=== PATIENT | male | born 1995 | race Caucasian/White ===

== ENCOUNTER 2020-07-10 12:25 | Outpatient (REF) | payer MEDICAID, SELFPAY ==
[2020-07-10 13:12] LABS: COVID-19 Test Negative (Negative)
== END 2020-07-10 12:26 | disposition home or self-care (01) ==
LOC: HO.LAB 12:25
PROVIDERS: Visit Provider Internal Medicine
DX: Z20.822 Contact with and (suspected) exposure to COVID-19 (principal)
CPT/HCPCS: 36415; 87635; C9803

== ENCOUNTER 2020-07-21 16:56 | Emergency (ER) | payer MEDICAID, SELFPAY ==
--- NOTE | 2020-07-21 17:11 | ED.PSYCH ---
HPI - Psych General Chief Complaint: Psychiatric Symptoms Stated Complaint: etoh Time Seen by Provider: 07/21/20 19:22 Source: patient and EMS Mode of arrival: EMS Limitations: altered mental status (Alcohol intoxication) History of Present Illness HPI Narrative: 24-year-old male presents via EMS for acute alcohol intoxication and suicidal ideation with suspected attempt. 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 Patient is belligerent at this time. MD complaint: suicidal ideation, altered mental status (Intoxication) and alcohol abuse Onset (ago): hour(s) (Within the hour of arrival) History of same: Yes Relieving factors: none Exacerbating factors: alcohol Context: recent alcohol abuse Associated psychiatric symptoms: depression and suicidal ideation Treatments prior to arrival: placed on mental health hold If self harm: admits thoughts of self harm Related Data Allergies Allergy/AdvReac Type Severity Reaction Status Date / Time No Known Allergies Allergy Unverified 11/24/19 19:36 [No Known Allergies*] Review of Systems Review of Systems: Constitutional: No Fever, No Chills ENT/Mouth: No sore throat, No Rhinorrhea Eyes: No Eye Pain, No Swelling, No Redness Cardiovascular: No Chest Pain, No SOB Respiratory: No Cough, No Sputum Gastrointestinal: No Nausea, No Vomiting, No Diarrhea, No abdominal Pain Genitourinary: No Dysuria, No Hematuria Musculoskeletal: No joint pain, No Myalgias, No Joint Swelling Skin: No Skin Lesions, No rash Neuro: No Weakness, No Numbness, No Loss of Consciousness, No Dizziness, No Headache Psych: No Anxiety, positive Depression, positive suicidal ideation, positive alcohol intoxication Heme/Lymph: No Bruising, No Bleeding,No Lymphadenopathy Endocrine: No Polyuria, No Polydipsia Yes all other systems are reviewed and are negative [facility] Past Medical History Attestation statement: The following information was validated with the patient. Source: old records reviewed Social History Social History Advance Directives: No Advance Directives Information Provided: No Physical Exam Vital Signs: Vital Signs: Last Vital Signs Temp 98.5 F 07/22/20 00:51 Pulse 102 H 07/22/20 00:51 Resp 17 07/22/20 00:51 BP 125/77 07/22/20 00:51 Pulse Ox 97 07/22/20 00:51 Body Mass Index 32.5 Appearance: Alert. Oriented X3. Acute alcohol intoxication. Eyes: Pupils equal, round and reactive to light. ENT: Pharynx normal. Neck: Normal inspection. Neck supple. CVS: Normal heart rate and rhythm. Pulses normal. Respiratory: No respiratory distress. Breath sounds normal. Abdomen: Soft and nontender. Skin: Skin warm and dry. Normal skin color. Normal skin turgor. Extremities: Moves all extremities spontaneously and against resistance Neuro: No motor deficit. No sensory deficit. Cranial nerves 2-12 intact no focal neural deficits Course Course Course Narrative: 24-year-old male presents via EMS for alcohol intoxication and suicidal ideation. It is reported that patient was found with a noose in his hand, with intent for him to use it. Upon my initial assessment, patient is belligerent, angry, stating that he does not belong here and wants to leave. After several minutes I informed this patient that he would not be leaving. Approximately 20 minutes after my initial assessment attempt, patient is more cooperative. States that he drinks alcohol on a daily basis, usually bourbon and beer. He does report making a suicidal statement however he did not mention that he had made a noose with intent to use it. At this time patient is unsafe to be discharged to home and requires BHN consult. We will monitor closely as he is a daily drinker and has high risk for EtOH withdrawal symptoms. 12:41 a.m. physician observation started. CIWA and BHN consult pending. MDM - Psych Lab Data Result diagrams: 07/21/20 19:38 07/21/20 19:38 Labs: Lab Results 07/21/20 07/21/20 07/21/20 Range/Units 18:23 19:38 19:38 WBC 4.5 L (4.8-10.8) X10*3/uL RBC 4.71 (4.60-5.80) X10*6/uL Hgb 15.3 (14.0-18.0) g/dl Hct 45.1 (42-52) % MCV 95.8 (80-98) fL MCH 32.5 (27.0-33.0) pg MCHC 33.9 (31.0-36.0) g/dl RDW 12.4 (11.0-16.0) % Plt Count 309 (160-400) X10*3/uL MPV 9.3 L (9.4-12.4) fL Immature Gran % (Auto) 0.4 (0.0-0.4) % Neut % (Auto) 57.4 (45-73) % Lymph % (Auto) 33.7 (20-40) % Hutchinson % (Auto) 6.3 (2-11) % Eos % (Auto) 1.1 (0-4) % Baso % (Auto) 1.1 (0-2) % Lymph # (Auto) 1.5 (1.2-4.9) X10*3/uL Hutchinson # (Auto) 0.3 (0.1-1.2) X10*3/uL Eos # (Auto) 0.1 (0.0-0.4) X10*3/uL Baso # (Auto) 0.1 (0.0-0.2) X10*3/uL Abs Immat Gran (auto) 0.02 (0.00-0.03) X10*3/uL Absolute Neuts (auto) 2.6 (2.0-8.3) X10*3/uL Absolute Nucleated RBC 0.000 (0.0-0.012) X10*3/uL Nucleated RBC % (auto) 0.0 (0.0-0.2) /100WBC Sodium 144 (135-145) mmol/L Potassium 4.8 (3.3-5.1) mmol/L Chloride 104 (96-108) mmol/L Carbon Dioxide 30 H (22-29) mmol/L Anion Gap 15 (12-20) BUN 10 (9-16) mg/dL Creatinine 1.08 (0.5-1.4) mg/dL Estim Creat Clear Calc 132.0 Estimated GFR > 60 Random Glucose 104 (60-115) mg/dL Calcium 9.8 (8.4-10.2) mg/dL Total Bilirubin 0.3 (0.0-1.0) mg/dL AST 36 (5-37) U/L ALT 29 (0-40) U/L Alkaline Phosphatase 85 (39-117) U/L Total Protein 7.9 (6.5-8.0) g/dL Albumin 4.8 (3.5-5.0) g/dL Urine Opiates Screen Not Detected (Not Detect) Ur Barbiturates Screen Not Detected (Not Detect) Ur Phencyclidine Scrn Not Detected (Not Detect) Ur Amphetamines Screen Not Detected (Not Detect) U Benzodiazepines Scrn Not Detected (Not Detect) Urine Cocaine Screen Not Detected (Not Detect) U Marijuana (THC) Screen Not Detected (Not Detect) Ethyl Alcohol mg/dL 07/21/20 Range/Units 19:38 WBC (4.8-10.8) X10*3/uL RBC (4.60-5.80) X10*6/uL Hgb (14.0-18.0) g/dl Hct (42-52) % MCV (80-98) fL MCH (27.0-33.0) pg MCHC (31.0-36.0) g/dl RDW (11.0-16.0) % Plt Count (160-400) X10*3/uL MPV (9.4-12.4) fL Immature Gran % (Auto) (0.0-0.4) % Neut % (Auto) (45-73) % Lymph % (Auto) (20-40) % Hutchinson % (Auto) (2-11) % Eos % (Auto) (0-4) % Baso % (Auto) (0-2) % Lymph # (Auto) (1.2-4.9) X10*3/uL Hutchinson # (Auto) (0.1-1.2) X10*3/uL Eos # (Auto) (0.0-0.4) X10*3/uL Baso # (Auto) (0.0-0.2) X10*3/uL Abs Immat Gran (auto) (0.00-0.03) X10*3/uL Absolute Neuts (auto) (2.0-8.3) X10*3/uL Absolute Nucleated RBC (0.0-0.012) X10*3/uL Nucleated RBC % (auto) (0.0-0.2) /100WBC Sodium (135-145) mmol/L Potassium (3.3-5.1) mmol/L Chloride (96-108) mmol/L Carbon Dioxide (22-29) mmol/L Anion Gap (12-20) BUN (9-16) mg/dL Creatinine (0.5-1.4) mg/dL Estim Creat Clear Calc Estimated GFR Random Glucose (60-115) mg/dL Calcium (8.4-10.2) mg/dL Total Bilirubin (0.0-1.0) mg/dL AST (5-37) U/L ALT (0-40) U/L Alkaline Phosphatase (39-117) U/L Total Protein (6.5-8.0) g/dL Albumin (3.5-5.0) g/dL Urine Opiates Screen (Not Detect) Ur Barbiturates Screen (Not Detect) Ur Phencyclidine Scrn (Not Detect) Ur Amphetamines Screen (Not Detect) U Benzodiazepines Scrn (Not Detect) Urine Cocaine Screen (Not Detect) U Marijuana (THC) Screen (Not Detect) Ethyl Alcohol 303 H* mg/dL
[2020-07-21 17:32] VITALS: BP 155/101; BP 190/100; PULSE 108; PULSE 130; RESP 18; TEMP 37.1; O2SAT 96; BMI 32.5
--- NOTE | 2020-07-21 17:46 | PC.NURSE ---
patient brought to ED by [facility] ems services, patient had sent texts while intoxicated to friends regarding a plan to kill self with noose in his home. patient reveals to this scenario writer that he has consistently consumed ETOH 9% beers and a third of a half gallon hard liquor every day. he reports no recent inpatient detoxes however has been hospitalized against his will for etoh poisoning/intoxication in the past. client states his drinking has been consistent since getting laid off 09/25. patient states M has mental health issues and may have attempted to diagnose patient . as i write this note patient is trying doors to escape. patient was informed he should be legally sober prior to assessment and patient may have forgotten.
[2020-07-21 18:52] LABS: Amphetamine Screen Urine Not Detected (Not Detect); Barbiturates, Urine Not Detected (Not Detect); Benzodiazepines Screen Urine Not Detected (Not Detect); Cannabinoid Screen Urine Not Detected (Not Detect); Cocaine Screen Urine Not Detected (Not Detect); Opiate Screen Urine Not Detected (Not Detect); Phencyclidine Screen Urine Not Detected (Not Detect)
--- NOTE | 2020-07-21 18:55 | PC.NURSE ---
Report received. PT is upset in room, pacing around. PT is waiting to be medically cleared.
[2020-07-21] MEDS: Nicotine 21 MG PATCH.TD24 TRANSDERMA (19:14)
[2020-07-21 19:46] LABS: MANUAL DIFF FLAG NO
[2020-07-21 19:48] LABS: Basophils Absolute Auto 0.1 X10*3/uL (0.0-0.2); Basophils Percent Auto 1.1 % (0-2); Eosinophils Absolute Auto 0.1 X10*3/uL (0.0-0.4); Eosinophils Percent Auto 1.1 % (0-4); Hematocrit 45.1 % (42-52); Hemoglobin 15.3 g/dl (14.0-18.0); Imm Gran Abs Auto 0.02 X10*3/uL (0.00-0.03); Imm Gran Pct Auto 0.4 % (0.0-0.4); Lymphocytes Absolute Auto 1.5 X10*3/uL (1.2-4.9); Lymphocytes Percent Auto 33.7 % (20-40); Mean Corpuscular HGB Conc 33.9 g/dl (31.0-36.0); Mean Corpuscular Hemoglobin 32.5 pg (27.0-33.0); Mean Corpuscular Volume 95.8 fL (80-98); Mean Platelet Volume 9.3 fL (9.4-12.4); Monocytes Absolute Auto 0.3 X10*3/uL (0.1-1.2); Monocytes Percent Auto 6.3 % (2-11); Neutrophils Absolute Auto 2.6 X10*3/uL (2.0-8.3); Neutrophils Percent Auto 57.4 % (45-73); Platelet Count 309 X10*3/uL (160-400); Red Blood Count 4.71 X10*6/uL (4.60-5.80); Red Cell Distribution Width 12.4 % (11.0-16.0); White Blood Count 4.5 X10*3/uL (4.8-10.8)
[2020-07-21 20:08] LABS: Ethanol 303 mg/dL
[2020-07-21 20:13] LABS: Alanine Aminotransferase 29 U/L (0-40); Albumin Level 4.8 g/dL (3.5-5.0); Alkaline Phosphatase 85 U/L (39-117); Anion Gap 15 (12-20); Aspartate Amino Transferase 36 U/L (5-37); Bilirubin Total 0.3 mg/dL (0.0-1.0); Blood Urea Nitrogen 10 mg/dL (9-16); Calcium 9.8 mg/dL (8.4-10.2); Carbon Dioxide 30 mmol/L (22-29); Chloride 104 mmol/L (96-108); Estimated Glomerular Filt Rate > 60; Glucose Random 104 mg/dL (60-115); Potassium 4.8 mmol/L (3.3-5.1); Sodium 144 mmol/L (135-145); Total Protein 7.9 g/dL (6.5-8.0)
--- NOTE | 2020-07-21 22:30 | PC.NURSE ---
EVERARDO faxed and called. EVERARDO stated someone would be here in the morning to see the PT.
[2020-07-22] MEDS: LORazepam 1 MG TABLET 2 MG PO ×2 (00:47→08:39)
[2020-07-22 00:51] VITALS: BP 125/77; PULSE 102; RESP 17; TEMP 36.9; O2SAT 97
--- NOTE | 2020-07-22 07:00 | PC.NURSE ---
Report recieved. PT currently resting, ambulated to bathroom with steady gait, in no apparent distress. PT waiting to be seen by N.
[2020-07-22 08:21] VITALS: BP 149/88; PULSE 107; RESP 19; TEMP 36.9; O2SAT 98
--- NOTE | 2020-07-22 11:32 | PC.NURSE ---
BHN at bedside for eval
[2020-07-22 12:19] VITALS: BP 151/96; PULSE 89; RESP 18; TEMP 37; O2SAT 98
== END 2020-07-22 13:52 | disposition home or self-care (01) ==
PROVIDERS: Nurse Practitioner Family; Emergency Provider Emergency Medicine
DX: R45.851 Suicidal ideations (principal); F32.9 Major depressive disorder, single episode, unspecified; F10.120 Alcohol abuse with intoxication, uncomplicated; Y90.8 Blood alcohol level of 240 mg/100 ml or more
CPT/HCPCS: 36415; 80053; 80307; 80320; 85025; 99285